=== PATIENT | male | born 1960 | race Hispanic/Latino ===

== ENCOUNTER 2017-11-13 10:41 | Day surgery (SDC) | payer OTHER ==
[2017-11-13] MEDS ORDERED: NACL 0.9% 1000 ML 1,000 ML IV SCH (12:00)
[2017-11-13] MEDS ORDERED: DIPRIVAN 10 MG/ML IV ONE ×2 (14:23)
[2017-11-13] MEDS ORDERED: XYLOCAINE MPF 2% ONE (14:30)
[2017-11-13 14:32] VITALS: BP 122/86
--- NOTE | 2017-11-13 14:40 | Anesthesia Consultation ---
Anesthesia Consult and Med Hx Date of service: 11/13/17 - Airway Anesthetic Teeth Evaluation: Poor ROM Head & Neck: Adequate Mental/Hyoid Distance: Adequate Mallampati Class: Class II Intubation Access Assessment: Probably Good - Pulmonary Exam CTA: Yes - Cardiac Exam Cardiac Exam: RRR - Pre-Operative Health Status ASA Pre-Surgery Classification: ASA3 Proposed Anesthetic Plan: MAC - Pulmonary Hx Smoking: Yes COPD: Yes - Central Nervous System Hx Back Pain: Yes Hx Psychiatric Problems: Yes - Other Systems Hx Alcohol Use: Yes (LAST TIME 45 DAYS AGO) Hx Substance Use: Yes (MARIJUANA, COCAINE USE. 45 days ago )
--- NOTE | 2017-11-13 14:40 | Anesthesia Day of Surgery ---
Anesthesia Day of Surgery - Day of Surgery Patient Examined: Yes Patient H&P Reviewed: Yes Patient is NPO: Yes
[2017-11-13] MEDS ORDERED: WATER FOR IRRIG STERILE IR ONE (14:50)
[2017-11-13] MEDS ORDERED: WATER FOR IRRIG STERILE ONE (14:50)
--- NOTE | 2017-11-13 15:08 | Operative Report ---
Operative Report Operative Report: Date of procedure: 11/13/2017 Procedure: Colonoscopy with Multiple Biopsies. Attending physician: Lion Zavala MD Director Of Public Health: Lion Zavala MD Indication: Patient is a 57-year-old male who presents for screening colonoscopy. This colonoscopy serves to evaluate patient so that treatment may be directed based on the findings. Consent: Informed consent was obtained after advising the patient and family regarding nature of this procedure, its indications, potential benefits as well as possible complications including but not limited to bleeding perforation and adverse reaction to medication, infection as well as other cardiopulmonary complications. An informed written and verbal consent was then obtained after due opportunity was provided for questions and answers. Monitoring: Patient was monitored continuously with pulse oximetry and electrocardiographic recordings as well as blood pressure recordings. Vital signs remained stable throughout this procedure with no untoward events. Preoperative assessment: Patient was assessed immediately prior to this procedure for capacity to tolerate monitored anesthesia care and moderate sedation as well as general anesthesia. Patient's ASA classification is 2, Mallampati class is 2, Hyomental distance is 3. Instrument: [employer] video colonoscope Medications: Propofol given intravenously in divided doses. For details please refer to anesthesia records. Description of procedure: Patient was placed in the left lateral decubitus position after achieving sedation, a digital rectal examination was performed following which the colonoscope was introduced into the anal verge and advanced to the cecum which was identified by the cecal valve, the appendiceal orifice, as well as by the cecal strap and direct transillumination. The colonoscope was subsequently withdrawn with careful inspection of all mucosal surfaces. Patient tolerated this procedure well and was subsequently taken to the recovery room. The following findings were noted. Findings: Patient had diminutive diverticula in the sigmoid and descending colon. There was a focal area with hyperemia and erosions with surrounding mucosal edema seen in the mid sigmoid colon. Endoscopic characteristics suggest some underlying focal colitis. Several biopsies were obtained for histopathologic review.. On the retroflex view at the anal verge, patient had internal hemorrhoids. Impression: Mucosal changes suggestive of focal colitis in the sigmoid colon. Diverticula disease of the colon. Internal hemorrhoids. Plan: Follow pathology report and direct additional treatment based on the pathology report.. High-fiber diet. Repeat colonoscopy in 10 years.
--- NOTE | 2017-11-13 15:08 | Discharge Summary ---
Short Stay Discharge Plan Weight Bearing Status: Weight Bear as Tolerated Diet: regular Additional Instructions: Post Sedation D/C Instructions When you return home you may resume your regular diet unless otherwise directed. -Go directly home from the hospital and rest quietly. You may resume normal activities tomorrow. -Do NOT drive, return to work, operate any machinery or make any important personal or business decisions today. -Do NOT drink any alcohol or take nerve or sleeping drugs. They add to the effects of the medicine still present in your body. Follow up with Dr. Zavala to obtain pathology results and treatment plan. Follow up with: PRIMARY CARE, [Primary Care Provider] - 7 Days
== END 2017-11-13 10:42 | disposition home or self-care (01) ==
LOC: GIO 10:41
PROVIDERS: ATTEND Internal Medicine Gastroenterology
DX: Z12.11 Encounter for screening for malignant neoplasm of colon (principal); K52.9 Noninfective gastroenteritis and colitis, unspecified; B18.2 Chronic viral hepatitis C; K57.30 Diverticulosis of large intestine without perforation or abscess without bleeding; K64.8 Other hemorrhoids; J44.9 Chronic obstructive pulmonary disease, unspecified; F17.290 Nicotine dependence, other tobacco product, uncomplicated
CPT/HCPCS: 45380; 88305; J2704; J7030